=== PATIENT | female | born 1955 | race Caucasian/White ===

== ENCOUNTER → 2021-06-20 | Outpatient (CLI) | payer MEDICARE, OTHER ==
[~2021-06-20] MED LIST: CELEBREX200 MG PO; FERROUS SULFAT325 M2 PO; HYDROCODON-ACE1 EAC6 PO; LOSARTAN-HCTZ1 EACH PO; MELOXICAM7.5 MG PO; NEURONTIN300 MG PO; PERCOCET 10-321 EACH PO; RANITIDINE HCL300 MG PO; SINGULAIR10 MG PO; TEMAZEPAM30 MG PO; THERAGRAN M TAB1 EA PO; XANAX1 MG PO; XARELTO10 MG PO; ZOFRAN 4 MG TAB4 MG PO; ZYRTEC10 M3 PO
== END ==
LOC: HEART 5 14:05
DX: J84.9 Interstitial pulmonary disease, unspecified (principal); R06.2 Wheezing
CPT/HCPCS: 94010; 94729; 95012

== ENCOUNTER → 2021-07-17 | Outpatient (CLI) | payer MEDICARE, OTHER | LOC: HEART 5 14:05 | DX: R06.00 Dyspnea, unspecified (principal); I34.0 Nonrheumatic mitral (valve) insufficiency | CPT/HCPCS: 71250; 93306 ==

== ENCOUNTER → 2021-07-17 | Outpatient (CLI) | payer MEDICARE, OTHER | LOC: KOH-I 13:13 | DX: R93.89 Abnormal findings on diagnostic imaging of other specified body structures (principal); J98.11 Atelectasis | CPT/HCPCS: 71250 ==

== ENCOUNTER → 2021-08-28 | Outpatient (CLI) | payer MEDICARE, OTHER | LOC: EXRD 07-24 14:15 | DX: M79.606 Pain in leg, unspecified (principal) | CPT/HCPCS: 93925 ==